=== PATIENT | female | born 2000 | race Caucasian/White ===

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

== ENCOUNTER 2020-07-29 14:40 | Emergency (ER) | payer OTHER ==
[~2020-07-29] VITALS: Ht 167.6 cm; Wt 59.0 kg
[~2020-07-29 14:40] MED LIST: ONDA8TAB9 PO
== END 2020-07-29 16:56 | disposition home or self-care (01) ==
LOC: ER 14:40
DX: R05 Cough (principal); J02.9 Acute pharyngitis, unspecified; R42 Dizziness and giddiness; M79.10 Myalgia, unspecified site; Z20.828 Contact with and (suspected) exposure to other viral communicable diseases
CPT/HCPCS: 87635; 99283; C9803